=== PATIENT | female | born 1985 | race Caucasian/White ===

== ENCOUNTER 2016-08-09 12:42 | Emergency (ER) | payer BC, MEDICAID ==
[2016-08-09] MEDS ORDERED: Sodium Chloride 0.9% 10 ML Syringe FLUSH PRN (13:09)
[2016-08-09] MEDS ORDERED: Sodium Chloride 0.9% 1,000 ML IV ONE (13:10)
[2016-08-09 14:02] LABS: CHLORIDE,CL 104 mmol/L (98-107); SODIUM,NA 143 mmol/L (136-145)
[2016-08-09 14:18] LABS: ACETAMINOPHEN 0 ug/ml (10-30)
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
[2016-08-09 19:19] VITALS: BP 160/99
== END 2016-08-09 14:20 | disposition short-term general hospital (02) ==
LOC: VM.ED 12:42
DX: T45.0X2A Poisoning by antiallergic and antiemetic drugs, intentional self-harm, initial encounter (principal); F17.210 Nicotine dependence, cigarettes, uncomplicated; Z88.5 Allergy status to narcotic agent; Z91.013 Allergy to seafood; Z88.8 Allergy status to other drugs, medicaments and biological substances; Z90.710 Acquired absence of both cervix and uterus; Z90.49 Acquired absence of other specified parts of digestive tract
CPT/HCPCS: 36415; 71010; 80053; 80305; 81025; 82550; 84484; 85025; 85610; 93005; 96365; 96375; 96376; 99285; G0480; J3360; J7030